=== PATIENT | male | born 1955 | race African-American/Black ===

== ENCOUNTER 2021-09-02 12:19 | Emergency (ER) | payer BC, MEDICARE ==
[~2021-09-02] VITALS: Ht 170.2 cm; Wt 82.0 kg
[2021-09-02 12:27] VITALS: BP 125/75
[2021-09-02] MEDS ORDERED: IBUPROFEN 600MG TABLET PO STA (13:27)
[2021-09-02] MEDS ORDERED: NIRM1TAB4 PO (14:44)
[2021-09-02] MEDS ORDERED: IBUP-2029 PO (14:44)
== END 2021-09-02 14:56 | disposition home or self-care (01) ==
LOC: ER 12:19
DX: U07.1 COVID-19 (principal)
CPT/HCPCS: 87426; 99283; C9803